=== PATIENT | female | born 1995 | race Two or more races ===

== ENCOUNTER → 2020-11-25 | Outpatient (CLI) | payer OTHER | END | disposition home or self-care (01) | LOC: PRENATAL 15:25 | PROVIDERS: ATTEND Obstetrics & Gynecology Maternal & Fetal Medicine | DX: O26.842 Uterine size-date discrepancy, second trimester (principal); O24.410 Gestational diabetes mellitus in pregnancy, diet controlled; Z36.89 Encounter for other specified antenatal screening; Z3A.15 15 weeks gestation of pregnancy ==

== ENCOUNTER → 2021-01-01 | Outpatient (CLI) | payer OTHER ==
[~2021-01-01] MED LIST: HUMULIN N100 UNIT/2 SUBCUTANEO; INSULIN SYRING1 EA29 SUBCUTANEO; NOVOLIN R100 UNIT/1 SUBCUTANEO
== END | disposition home or self-care (01) ==
LOC: PRENATAL 08:00
PROVIDERS: ATTEND Obstetrics & Gynecology Maternal & Fetal Medicine
DX: O35.0XX1 Maternal care for (suspected) central nervous system malformation in fetus, fetus 1 (principal); O35.3XX1 Maternal care for (suspected) damage to fetus from viral disease in mother, fetus 1; O98.512 Other viral diseases complicating pregnancy, second trimester; O24.410 Gestational diabetes mellitus in pregnancy, diet controlled; O34.12 Maternal care for benign tumor of corpus uteri, second trimester; Z36.89 Encounter for other specified antenatal screening; Z3A.20 20 weeks gestation of pregnancy

== ENCOUNTER → 2021-01-31 | Outpatient (CLI) | payer OTHER | END | disposition home or self-care (01) | LOC: PRENATAL 11:00 | PROVIDERS: ATTEND Obstetrics & Gynecology Maternal & Fetal Medicine | DX: O26.842 Uterine size-date discrepancy, second trimester (principal); O24.410 Gestational diabetes mellitus in pregnancy, diet controlled; O34.12 Maternal care for benign tumor of corpus uteri, second trimester; Z36.89 Encounter for other specified antenatal screening; Z3A.24 24 weeks gestation of pregnancy ==

== ENCOUNTER → 2021-02-28 | Outpatient (CLI) | payer OTHER | END | disposition home or self-care (01) | LOC: PRENATAL 10:30 | PROVIDERS: ATTEND Obstetrics & Gynecology Maternal & Fetal Medicine | DX: O26.842 Uterine size-date discrepancy, second trimester (principal); O34.12 Maternal care for benign tumor of corpus uteri, second trimester; O24.410 Gestational diabetes mellitus in pregnancy, diet controlled; Z36.89 Encounter for other specified antenatal screening; Z3A.27 27 weeks gestation of pregnancy ==

== ENCOUNTER → 2021-03-28 | Outpatient (CLI) | payer OTHER | END | disposition home or self-care (01) | LOC: PRENATAL 15:00 | PROVIDERS: ATTEND Obstetrics & Gynecology Maternal & Fetal Medicine | DX: O26.843 Uterine size-date discrepancy, third trimester (principal); O24.410 Gestational diabetes mellitus in pregnancy, diet controlled; O34.13 Maternal care for benign tumor of corpus uteri, third trimester; Z36.89 Encounter for other specified antenatal screening; Z3A.31 31 weeks gestation of pregnancy ==

== ENCOUNTER → 2021-04-25 | Outpatient (CLI) | payer OTHER | END | disposition home or self-care (01) | LOC: PRENATAL 15:00 | PROVIDERS: ATTEND Obstetrics & Gynecology Maternal & Fetal Medicine | DX: O26.843 Uterine size-date discrepancy, third trimester (principal); O24.410 Gestational diabetes mellitus in pregnancy, diet controlled; O34.13 Maternal care for benign tumor of corpus uteri, third trimester; O36.8131 Decreased fetal movements, third trimester, fetus 1; O35.0XX1 Maternal care for (suspected) central nervous system malformation in fetus, fetus 1; Z36.89 Encounter for other specified antenatal screening; Z3A.34 34 weeks gestation of pregnancy ==

== ENCOUNTER 2021-05-05 13:05 | Outpatient (CLI) | payer OTHER | END 2021-05-05 16:20 | disposition home or self-care (01) | LOC: OBS/DEL 13:05 | PROVIDERS: ATTEND Obstetrics & Gynecology | DX: O47.1 False labor at or after 37 completed weeks of gestation (principal); Z3A.38 38 weeks gestation of pregnancy ==

== ENCOUNTER 2021-05-09 08:13 | Inpatient (IN) | payer OTHER ==
[~2021-05-09] VITALS: Ht 154.9 cm; Wt 2.3 kg
[2021-05-09] MEDS ORDERED: AMPICILLIN SOD500 MG PO (09:29)
[2021-05-09] MEDS ORDERED: PRENATAL TABLE1 EAC1 PO (09:29)
[2021-05-09] MEDS ORDERED: HUMULIN N100 UNIT/2 SUBCUTANEO (09:30)
== END 2021-05-12 12:04 | disposition home or self-care (01) | DRG 787 ==
LOC: LDR 08:13 → OB/GYN 08:13
PROVIDERS: ADMIT Obstetrics & Gynecology; ATTEND Obstetrics & Gynecology
PROC: 4A1HXFZ Monitoring of Products of Conception, Cardiac Rhythm, External Approach (ICD-10-PCS; 2021-05-09)
PROC: 10D00Z1 Extraction of Products of Conception, Low, Open Approach (ICD-10-PCS; principal; 2021-05-09 13:00)
DX: O65.5 Obstructed labor due to abnormality of maternal pelvic organs (principal); O99.12 Other diseases of the blood and blood-forming organs and certain disorders involving the immune mechanism complicating childbirth; O34.13 Maternal care for benign tumor of corpus uteri, third trimester; D25.1 Intramural leiomyoma of uterus; D69.59 Other secondary thrombocytopenia; O24.424 Gestational diabetes mellitus in childbirth, insulin controlled; O99.824 Streptococcus B carrier state complicating childbirth; Z3A.39 39 weeks gestation of pregnancy; Z37.0 Single live birth; Z20.822 Contact with and (suspected) exposure to COVID-19

== ENCOUNTER 2024-08-30 15:31 | Emergency (ER) | payer OTHER ==
[~2024-08-30] VITALS: Ht 154.9 cm; Wt 76.2 kg
[~2024-08-30 15:31] MED LIST changes: +AMPICILLIN SOD500 MG PO; +PRENATAL TABLE1 EAC1 PO
[2024-08-30 17:26] LABS: HEMATOCRIT 35.9 % (36.0-45.00); HEMOGLOBIN 11.6 g/dL (12.0-15.00); MEAN CELL VOLUME 78.6 fL (80.00-100.00); MEAN CORPUSCULAR HEMOGLOBIN 25.5 pg (27.00-32.0); MEAN CORPUSCULAR HGB CONC 32.4 g/dl (32.0-36.0); PLATELET COUNT 214 K/uL (150-450); RED BLOOD COUNT 4.56 M/uL (4.00-6.00); RED CELL DISTRIBUTION WIDTH 14.7 % (11.5-14.5)
[2024-08-30 17:46] LABS: INR 0.95; PARTIAL THROMBOPLASTIN TIME 26.8 SECONDS (22.0-34.0); PROTHROMBIN TIME 10.4 SECONDS (9.0-11.5)
[2024-08-30 18:06] LABS: CALCIUM 8.5 mg/dL (8.5-10.1); CREATININE SERUM 0.71 mg/dL (0.55-1.02); GFR 96.01; POTASSIUM 3.76 mEq/L (3.5-5.1)
== END 2024-08-30 19:15 | disposition home or self-care (01) ==
LOC: ER 15:33
DX: O20.8 Other hemorrhage in early pregnancy (principal); Z3A.01 Less than 8 weeks gestation of pregnancy; R10.9 Unspecified abdominal pain

== ENCOUNTER 2024-09-25 19:14 | Emergency (ER) | payer OTHER ==
[~2024-09-25] VITALS: Ht 154.9 cm; Wt 75.7 kg
[2024-09-25 20:30] LABS: HEMOGLOBIN 11.2 g/dL (12.0-15.00); MEAN CORPUSCULAR HEMOGLOBIN 25.4 pg (27.00-32.0); MEAN CORPUSCULAR HGB CONC 32.1 g/dl (32.0-36.0); PLATELET COUNT 210 K/uL (150-450); RED BLOOD COUNT 4.42 M/uL (4.00-6.00)
== END 2024-09-25 22:14 | disposition home or self-care (01) ==
LOC: ER 19:16
PROVIDERS: Nurse Practitioner Family
DX: O20.8 Other hemorrhage in early pregnancy (principal); Z3A.01 Less than 8 weeks gestation of pregnancy